=== PATIENT | male | born 1950 | race African-American/Black ===

== ENCOUNTER → 2016-11-14 | Outpatient (CLI) | payer OTHER ==
[~2016-11-14] MED LIST: ALBUTEROL20 ml INH; BENZONATATE200 M1 PO; CLARITIN10 M2 PO; GLUCOPHAGE850 MG PO; LISINOPRIL-HCTZ1 T14 PO; ONGLYZA5 MG PO; PRAVASTATIN SOD40 MG PO
--- NOTE | ~2016-11-14 | BD1 ---
[facility] A Service [facility] RADIOLOGY TEXT RESULTS PATIENT: WOJCIECH WING LOCATION: [facility] : 46 UNIT #: [id number] AGE: [address]: Ruben Mendez MD SEX: M ORDER DR: [id number] [facility] [address]. [place], [place] [address] [id number] O MR#: [id number] Acc #: [id number] NAME: WOJCIECH WING : 1950 SEX: M STUDY DATE/TIME: 11/14/2016 12:24 UNIT: [facility] ROOM: STUDY DESCRIPTION: BD Dexa Bone Dens 1+ Site Attending Physician: Ruben Mendez M.D. Ordering Physician: Ruben Mendez M.D. Primary Care Physician: Ruben Mendez M.D. MEDICAL IMAGING REPORT This report is preliminary unless electronic signature is present EXAM DXA scan. DATE OF EXAM 11/14/2016 HISTORY Osteoporosis. Diabetes. Smoking history for 25 years. Hypertension with blood pressure medication. FINDINGS Bone mineral density in the lumbar spine from L1 through L4 is 1.242 g/cm2 which is 1.4 standard deviations above the mean when compared to the young adult reference population which is within the range of normal. This is 1.3 standard deviations above the mean when compared to the age-matched population. Bone mineral density in the left femoral neck was 0.954 g/cm2 which is 0.2 standard deviations above the mean when compared to the young adult reference population which is within the range of normal. This is 0.7 standard deviations above the mean when compared to the age-matched population. IMPRESSION Bone mineral density in the lumbar spine and left hip within the range of normal. Dictated by... Erick Woodson M.D. THIS IS AN ELECTRONICALLY VERIFIED REPORT Erick Woodson M.D. at 11/14/2016 4:36 PM [facility] A Service of [facility] RADIOLOGY TEXT RESULTS PATIENT: WOJCIECH WING LOCATION: [facility] : 46 UNIT #: [id number] AGE: [address]: Ruben Mendez MD SEX: M ORDER DR: TD: 11/14/2016 15:19 JOB #: [id number] MEDICAL IMAGING REPORT Page 1 of 1 COPY
== END | disposition home or self-care (01) ==
LOC: CWCC 11-12 10:30
DX: Z13.820 Encounter for screening for osteoporosis (principal); Z88.0 Allergy status to penicillin; Z88.2 Allergy status to sulfonamides
CPT/HCPCS: 77080

== ENCOUNTER → 2016-12-09 | Outpatient (CLI) | payer OTHER ==
--- NOTE | ~2016-12-09 | US6 ---
[facility] A Service of [facility] RADIOLOGY TEXT RESULTS PATIENT: WOJCIECH WING LOCATION: [facility] : 46 UNIT #: [id number] AGE: [address]: Ruben Mendez MD SEX: M ORDER DR: [id number] [place] [id number] [facility]. [place], [place] [address] [id number] O MR#: [id number] Acc #: [id number] NAME: WOJCIECH WING : 1950 SEX: M STUDY DATE/TIME: 12/09/2016 9:28 UNIT: [facility] ROOM: STUDY DESCRIPTION: US Abdominal Limited Attending Physician: Ruben Mendez M.D. Referring Physician: Ruben Mendez M.D. Ordering Physician: Ruben Mendez M.D. Primary Care Physician: Ruben Mendez M.D. MEDICAL IMAGING REPORT This report is preliminary unless electronic signature is present EXAM Right upper quadrant abdominal ultrasound INDICATIONS Elevated liver enzyme levels. PROCEDURE Garrison-scale and Doppler imaging upper quadrant of the abdomen. COMPARISON: None FINDINGS Majority of pancreas is obscured by bowel gas and not well seen. Liver measures 14.8 cm. Liver is not well evaluated on this study but there is no definite mass. Right kidney measures 9.2 cm. No hydronephrosis. Sludge or small stones in the gallbladder. No gallbladder wall thickening or pericholecystic fluid. Common duct measures 3 mm. IMPRESSION 1. Small amount of sludge or small stones in the gallbladder. No sonographic evidence for acute cholecystitis. 2. Pancreas is obscured. Liver is difficult to see on multiple images but there is no definite liver mass. Dictated by... Vinnie Najera M.D. THIS IS AN ELECTRONICALLY VERIFIED REPORT Vinnie Najera M.D. at 12/10/2016 2:30 PM [facility]/jennifer [facility] A Service of [facility] RADIOLOGY TEXT RESULTS PATIENT: WOJCIECH WING LOCATION: [facility] #: [id number] : 46 UNIT #: [id number] AGE: [address]: Ruben Mendez MD SEX: M ORDER DR: TD: 12/09/2016 14:34 JOB #: [id number] MEDICAL IMAGING REPORT Page 1 of 1 COPY
== END | disposition home or self-care (01) ==
LOC: CGUS 08:48
DX: R10.11 Right upper quadrant pain (principal)
CPT/HCPCS: 76705